=== PATIENT | male | born 1965 | race Caucasian/White ===

== ENCOUNTER 2020-08-16 14:10 | Emergency (ER) | payer MEDICARE, OTHER ==
[2020-08-16 15:25] LABS: HEMOGLOBIN 14.9 gm/dl (14.0-17.5); RED BLOOD COUNT 4.51 M/UL (4.20-5.50); WHITE BLOOD COUNT 6.7 K/UL (4.5-11.0)
[2020-08-16 16:23] LABS: BUN/CREATININE RATIO 8 (0-10)
[2020-08-16] MEDS ORDERED: VALTREX1000 MG PO (16:50)
[2020-08-16] MEDS ORDERED: NEURONTIN 100100 MG PO (16:50)
== END 2020-08-16 17:09 | disposition home or self-care (01) ==
LOC: ER1 14:10
PROVIDERS: Emergency Medicine
DX: M50.223 Other cervical disc displacement at C6-C7 level (principal); B02.9 Zoster without complications; F17.210 Nicotine dependence, cigarettes, uncomplicated
CPT/HCPCS: 70450; 71045; 72125; 80053; 82550; 82553; 83874; 84484; 85025; 85652; 86140; 87040; 99284